=== PATIENT | male | born 1980 | race American Indian/Alaskan Native ===

== ENCOUNTER 2019-07-05 14:50 | Emergency (ER) | payer OTHER ==
[2019-07-05 14:58] VITALS: BP 192/119
--- NOTE | 2019-07-05 15:04 | Emergency Department Report ---
Blank Doc - Documentation Documentation: 38-year-old male that presents with SOB and cough. This initial assessment/diagnostic orders/clinical plan/treatment(s) is/are subject to change based on patient's health status, clinical progression and re- assessment by fellow clinical providers in the ED. Further treatment and workup at subsequent clinical providers discretion. Patient/guardians urged not to elope from the ED as their condition may be serious if not clinically assessed and managed. Initial orders include: 1- Patient sent to [facility] for further evaluation and treatment 2- CXR
--- NOTE | 2019-07-05 17:07 | Emergency Department Report ---
ED General Adult HPI - General Chief complaint: Dyspnea/Respdistress Stated complaint: COUGH/SOB/ Time Seen by Provider: 07/05/19 15:03 Source: patient Mode of arrival: Ambulatory Limitations: No Limitations - History of Present Illness Initial comments: 38-year-old male presenting with chief complaint of cough. He states he has been coughing for 2-1/2 weeks and although the cough seems to be getting a bit better and his shortness of breath has resolved, he still feels congestion in his throat area and wants antibiotics to knock it out. He denies any fevers. Denies any recent travel or known sick contacts. -: Gradual, week(s) (3) Location: chest Radiation: non-radiation Improves with: none Worsens with: none Associated Symptoms: denies other symptoms, cough. denies: chest pain, headaches, nausea/vomiting - Related Data Previous Rx's Medication Instructions Recorded Last Taken Type Albuterol INH(or & Nicu Only) 2 puff IH QID PRN #8.5 gram 07/05/19 Unknown Rx [ProAir HFA Inhaler] amLODIPine 5 mg PO DAILY #30 tab 07/05/19 Unknown Rx hydroCHLOROthiazide [HCTZ] 25 mg PO QDAY #30 tablet 07/05/19 Unknown Rx predniSONE [Deltasone] 40 mg PO QDAY #10 tab 07/05/19 Unknown Rx Allergies Allergy/AdvReac Type Severity Reaction Status Date / Time No Known Allergies Allergy Unverified 07/05/19 15:05 ED Review of Systems ROS: Stated complaint: COUGH/SOB/ Other details as noted in HPI Comment: All other systems reviewed and negative ENT: as per HPI Respiratory: see HPI ED Past Medical Hx - Past Medical History Previous Medical History?: Yes Hx Hypertension: Yes - Surgical History Past Surgical History?: Yes Additional Surgical History: JAW FX - Social History Smoking Status: Never Smoker Substance Use Type: Alcohol - Medications Home Medications: Home Medications Medication Instructions Recorded Confirmed Last Taken Type Albuterol INH(or & Nicu Only) 2 puff IH QID PRN #8.5 gram 07/05/19 Unknown Rx [ProAir HFA Inhaler] amLODIPine 5 mg PO DAILY #30 tab 07/05/19 Unknown Rx hydroCHLOROthiazide [HCTZ] 25 mg PO QDAY #30 tablet 07/05/19 Unknown Rx predniSONE [Deltasone] 40 mg PO QDAY #10 tab 07/05/19 Unknown Rx ED Physical Exam - General Limitations: No Limitations General appearance: alert, in no apparent distress - Head Head exam: Present: atraumatic, normocephalic - Eye Eye exam: Present: normal appearance, PERRL, EOMI - ENT ENT exam: Present: normal exam, mucous membranes moist - Neck Neck exam: Present: normal inspection. Absent: tenderness - Respiratory Respiratory exam: Present: normal lung sounds bilaterally. Absent: respiratory distress, wheezes - Cardiovascular Cardiovascular Exam: Present: regular rate, normal rhythm. Absent: systolic murmur, diastolic murmur, rubs, gallop - GI/Abdominal GI/Abdominal exam: Present: soft, normal bowel sounds - Rectal Rectal exam: Present: deferred - Extremities Exam Extremities exam: Present: normal inspection - Back Exam Back exam: Present: normal inspection - Neurological Exam Neurological exam: Present: alert, oriented X3 - Psychiatric Psychiatric exam: Present: normal affect, normal mood - Skin Skin exam: Present: warm, dry, intact, normal color. Absent: rash ED Course Vital Signs 07/05/19 14:55 Temperature 97.9 F Pulse Rate 89 Respiratory 18 Rate Blood Pressure 192/119 O2 Sat by Pulse 94 Oximetry ED Medical Decision Making - Medical Decision Making Patient states that he has a cough for a few weeks and although the cough and shortness of breath are improving he still feels congestion in his throat and is requesting a prescription for antibiotics. I have advised him that it sounds like he has bronchitis and this is typically viral and antibiotics would be ineffective in treating this and could give him unwanted side effects. I requested to do a chest x-ray however he declines this on multiple occasions stating that "nothing is wrong with my lungs". His blood pressure is noted to be significantly elevated although he is asymptomatic and per ACEP guidelines, this does not require emergent lowering. He will be placed back on his antihypertensives. I have advised that we can offer steroids to try to help break up his congestion in the because he is a non-smoker and his lungs are clear, pneumonia is felt unlikely although I again advised a chest x-ray to evaluate this. Again advised that antibiotics would not be indicated to treat what is likely a viral infection that seems to be improving on its own. He has been advised to follow-up with PCP. - Differential Diagnosis Bronchitis, pneumonia, hypertension Critical care attestation.: If time is entered above; I have spent that time in minutes in the direct care of this critically ill patient, excluding procedure time. ED Disposition Clinical Impression: Uncontrolled hypertension Acute bronchitis Qualifiers: Bronchitis organism: unspecified organism Qualified Code(s): J20.9 - Acute bronchitis, unspecified Disposition: TO HOME OR SELFCARE Is pt being admited?: No Condition: Good Instructions: Acute Bronchitis (ED), Hypertension (ED) Prescriptions: amLODIPine 5 mg PO DAILY #30 tab predniSONE [Deltasone] 40 mg PO QDAY #10 tab hydroCHLOROthiazide [HCTZ] 25 mg PO QDAY #30 tablet Albuterol INH(or & Nicu Only) [ProAir HFA Inhaler] 2 puff IH QID PRN #8.5 gram PRN Reason: Shortness Of Breath Referrals: PRIMARY CARE, [Primary Care Provider] - 3-5 Days JOSELITO YAÑEZ MD [Staff Physician] - 3-5 Days Time of Disposition: 17:08
== END 2019-07-05 17:30 | disposition home or self-care (01) ==
LOC: ED 14:50
DX: J20.9 Acute bronchitis, unspecified (principal); I10 Essential (primary) hypertension; Z98.890 Other specified postprocedural states; Z79.899 Other long term (current) drug therapy
CPT/HCPCS: 99282

== ENCOUNTER 2020-04-08 17:12 | Inpatient (IN) | payer OTHER ==
--- NOTE | 2020-04-08 20:06 | Event Note ---
ED Screening Note ED Screening Note: pt presents for SOB for 2 weeks no cough, fever, v/d, SOB, leg swelling hx of HTN, has not taken medication in months, was last prescribed 30 days in november 2019, never followed up with PCP no allergies to meds tested positive for COVID 19 in january This initial assessment/diagnostic orders/clinical plan/treatment(s) is/are subject to change based on patients health status, clinical progression and re- assessment by fellow clinical providers in the ED. Further treatment and workup at subsequent clinical providers discretion. Patient/guardian urged not to elope from the ED as their condition may be serious if not clinically assessed and managed. Initial orders include: labs, EKG, CXR
[2020-04-08 20:36] LABS: Basophils # (Auto) 0.1 K/mm3 (0.0-0.1); Eosinophils # (Auto) 0.1 K/mm3 (0.0-0.4); Eosinophils % (Auto) 1.8 % (0.0-4.3); Hematocrit 42.6 % (35.5-45.6); Hemoglobin 14.1 gm/dl (11.8-15.2); Lymphocytes # (Auto) 2.4 K/mm3 (1.2-5.4); Lymphocytes % (Auto) 36.9 % (13.4-35.0); Mean Corpuscular HGB Conc 33 % (32-34); Mean Corpuscular Volume 88 fl (84-94); Monocytes # (Auto) 0.7 K/mm3 (0.0-0.8); Monocytes % (Auto) 11.3 % (0.0-7.3); Platelet Count 263 K/mm3 (140-440); Red Blood Count 4.87 M/mm3 (3.65-5.03); Red Cell Distribution Width 14.2 % (13.2-15.2)
--- NOTE | 2020-04-08 20:45 | XRay Report ---
CHEST 2 VIEWS INDICATION / CLINICAL INFORMATION: SOB, HTN urgency. COMPARISON: None available. FINDINGS: SUPPORT DEVICES: None. HEART / MEDIASTINUM: Cardiomegaly. LUNGS / PLEURA: No significant pulmonary or pleural abnormality. No pneumothorax. ADDITIONAL FINDINGS: No significant additional findings. IMPRESSION: 1. Cardiomegaly without acute pulmonary abnormality. Signer Name: Sean Sellers MD Signed: 04/08/2020 8:41 PM Workstation Name: [id number]
[2020-04-08 20:56] LABS: Alanine Aminotransferase 60 units/L (7-56); Albumin 3.8 g/dL (3.9-5); BUN/Creatinine Ratio 12; Blood Urea Nitrogen 13 mg/dL (9-20); Calcium 9.2 mg/dL (8.4-10.2); Hemolysis Index 51
[2020-04-08] MEDS ORDERED: FUROSEMIDE 40 MG/4 ML INJ IV ONE (22:41)
--- NOTE | 2020-04-08 23:27 | Emergency Department Report ---
ED Shortness of Breath HPI - General Chief Complaint: Dyspnea/Respdistress Stated Complaint: HEAVY BREATHING/COVID Time Seen by Provider: 04/08/20 20:01 Source: patient Mode of arrival: Ambulatory Limitations: No Limitations - History of Present Illness Initial Comments: This is a 39-year-old male with past medical history of hypertension but is noncompliant nontoxic, well nourished in appearance, no acute signs of distress presents to the ED with c/o of chest tightness and SOB with bilateral leg swellings. Patient stated has gained about 20 IBS in a few weeks. Patient denies any radiation of pain. Patient denies any upper respiratory symptoms. Patient denies any hemoptysis, fever, chills, nausea, vomiting, headache, stiff neck, numbness, tingling, abdominal pain. Patient denies pleuritic chest pain. Patient denies any recent travels or long car rides. Patient denies any recent surgeries or any sick contacts. Patient denies any drug allergies. Patient denies following up with primary care doctor or [employer]. MD Complaint: shortness of breath, chest pain -: days(s) Pain Scale: 3 Quality: other (thightness) Consistency: constant Improves With: nothing Worsens With: nothing Context: recent URI Associated Symptoms: chest pain Treatments Prior to Arrival: none - Related Data Previous Rx's Medication Instructions Recorded Last Taken Type Albuterol Mdi (or & Nicu Only) 2 puff IH QID PRN #8.5 gram 07/05/19 Unknown Rx [ProAir HFA Inhaler] predniSONE [Deltasone] 40 mg PO QDAY #10 tab 07/05/19 Unknown Rx amLODIPine 5 mg PO DAILY #30 tab 11/21/19 Unknown Rx hydroCHLOROthiazide [HCTZ] 25 mg PO QDAY #30 tablet 11/21/19 Unknown Rx Allergies Allergy/AdvReac Type Severity Reaction Status Date / Time No Known Allergies Allergy Unverified 07/05/19 15:05 ED Review of Systems ROS: Stated complaint: HEAVY BREATHING/COVID Other details as noted in HPI Comment: All other systems reviewed and negative Constitutional: denies: chills, fever Eyes: denies: eye pain, eye discharge, vision change ENT: denies: ear pain, throat pain Respiratory: shortness of breath. denies: cough, wheezing Cardiovascular: chest pain, edema. denies: palpitations Endocrine: no symptoms reported Gastrointestinal: denies: abdominal pain, nausea, diarrhea Genitourinary: denies: urgency, dysuria Musculoskeletal: denies: back pain, joint swelling, arthralgia Skin: denies: rash, lesions Neurological: denies: headache, weakness, paresthesias Psychiatric: denies: anxiety, depression Hematological/Lymphatic: denies: easy bleeding, easy bruising ED Past Medical Hx - Past Medical History Previous Medical History?: Yes Hx Hypertension: Yes - Surgical History Past Surgical History?: Yes Additional Surgical History: JAW FX - Social History Smoking Status: Never Smoker Substance Use Type: Alcohol - Medications Home Medications: Home Medications Medication Instructions Recorded Confirmed Last Taken Type Albuterol Mdi (or & Nicu Only) 2 puff IH QID PRN #8.5 gram 07/05/19 Unknown Rx [ProAir HFA Inhaler] predniSONE [Deltasone] 40 mg PO QDAY #10 tab 07/05/19 Unknown Rx amLODIPine 5 mg PO DAILY #30 tab 11/21/19 Unknown Rx hydroCHLOROthiazide [HCTZ] 25 mg PO QDAY #30 tablet 11/21/19 Unknown Rx ED Physical Exam - General Limitations: No Limitations General appearance: alert, in no apparent distress - Head Head exam: Present: atraumatic, normocephalic - Eye Eye exam: Present: normal appearance - Neck Neck exam: Present: normal inspection, full ROM. Absent: tenderness, meningismus, lymphadenopathy - Respiratory Respiratory exam: Present: normal lung sounds bilaterally. Absent: respiratory distress, wheezes, rales, rhonchi, stridor, chest wall tenderness, accessory muscle use, decreased breath sounds, prolonged expiratory - Cardiovascular Cardiovascular Exam: Present: regular rate, normal rhythm, tachycardia, normal heart sounds. Absent: irregular rhythm, systolic murmur, diastolic murmur, rubs, gallop - GI/Abdominal GI/Abdominal exam: Present: soft, distended, normal bowel sounds. Absent: tenderness, guarding, rebound, rigid, diminished bowel sounds - Rectal Rectal exam: Present: deferred - Extremities Exam Extremities exam: Present: normal inspection, full ROM, normal capillary refill, other (bilateral 2+ pedding edema). Absent: tenderness, joint swelling, calf tenderness - Back Exam Back exam: Present: normal inspection, full ROM. Absent: tenderness, CVA tenderness (R), CVA tenderness (L), muscle spasm, paraspinal tenderness, vertebral tenderness, rash noted - Neurological Exam Neurological exam: Present: alert, oriented X3, normal gait - Psychiatric Psychiatric exam: Present: normal affect, normal mood - Skin Skin exam: Present: warm, dry, intact, normal color. Absent: rash ED Course Vital Signs 04/08/20 04/08/20 04/08/20 17:42 22:14 22:24 Temperature 98.3 F Pulse Rate 102 H 98 H 93 H Respiratory 20 16 Rate Blood Pressure 231/151 184/132 187/133 O2 Sat by Pulse 96 96 94 Oximetry - Reevaluation(s) Reevaluation #1: 04/08/20 23:22 Patient is speaking in full sentences with no acute signs of distress. - Consultations Consultation #1: 04/08/20 23:22 Patient has been consulted with Dr. Celis about patient history, physical exam, and labs/imaging results and accepts patient to services. Consultation #2: 04/08/20 23:31 Patient has been consulted with Dr. Moeller about patient history, physical exam, and labs/imaging results and agrees to the ED plan of care and admission. ED Medical Decision Making - Lab Data Result diagrams: 04/08/20 20:13 04/08/20 20:11 Lab Results 04/08/20 04/08/20 Range/Units 20:11 20:13 WBC 6.5 (4.5-11.0) K/mm3 RBC 4.87 (3.65-5.03) M/mm3 Hgb 14.1 (11.8-15.2) gm/dl Hct 42.6 (35.5-45.6) % MCV 88 (84-94) fl MCH 29 (28-32) pg MCHC 33 (32-34) % RDW 14.2 (13.2-15.2) % Plt Count 263 (140-440) K/mm3 Lymph % (Auto) 36.9 H (13.4-35.0) % [place] % (Auto) 11.3 H (0.0-7.3) % Eos % (Auto) 1.8 (0.0-4.3) % Baso % (Auto) 1.0 (0.0-1.8) % Lymph # (Auto) 2.4 (1.2-5.4) K/mm3 [place] # (Auto) 0.7 (0.0-0.8) K/mm3 Eos # (Auto) 0.1 (0.0-0.4) K/mm3 Baso # (Auto) 0.1 (0.0-0.1) K/mm3 Seg Neutrophils % 49.0 (40.0-70.0) % Seg Neutrophils # 3.2 (1.8-7.7) K/mm3 Sodium 138 (137-145) mmol/L Potassium 3.9 (3.6-5.0) mmol/L Chloride 97.5 L (98-107) mmol/L Carbon Dioxide 31 H (22-30) mmol/L Anion Gap 13 mmol/L BUN 13 (9-20) mg/dL Creatinine 1.1 (0.8-1.3) mg/dL Estimated GFR > 60 ml/min BUN/Creatinine Ratio 12 % Glucose 99 (75-100) mg/dL Calcium 9.2 (8.4-10.2) mg/dL Total Bilirubin 0.50 (0.1-1.2) mg/dL AST 42 H (5-40) units/L ALT 60 H (7-56) units/L Alkaline Phosphatase 104 (35-129) units/L Troponin T < 0.010 (0.00-0.029) ng/mL NT-Pro-B Natriuret Pep 2844 H (0-450) pg/mL Total Protein 7.1 (6.3-8.2) g/dL Albumin 3.8 L (3.9-5) g/dL Albumin/Globulin Ratio 1.2 % - EKG Data 04/08/20 23:27 Sinus tachycardia at 108. Left arterial enlargement. 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 Left ventricular hypertrophy. Anterior Q waves, possibly due to LVH - Radiology Data Referring Physician: DIANNA MCDERMOTT Patient Name: CAROLINE MEDEROS Date of : 1980 Sex: Male Report Date: 2020-04-08 Report Status: Finalized [facility] [address] [place] [address] XRay Report Signed Patient: CAROLINE MEDEROS MR#: [id number] : 1980 Acct:[id number] Age/Sex: 39 / M ADM Date: 04/08/20 Loc: ED Attending Dr: Ordering Physician: KRYSTAL ARIAS Date of Service: 04/08/20 Procedure(s): XR chest routine 2V Accession Number(s): [id number] cc: KRYSTAL ARIAS Fluoro Time In Minutes: CHEST 2 VIEWS INDICATION / CLINICAL INFORMATION: SOB, HTN urgency. COMPARISON: None available. FINDINGS: SUPPORT DEVICES: None. HEART / MEDIASTINUM: Cardiomegaly. LUNGS / PLEURA: No significant pulmonary or pleural abnormality. No pneumothorax. ADDITIONAL FINDINGS: No significant additional findings. IMPRESSION: 1. Cardiomegaly without acute pulmonary abnormality. Signer Name: Tiago Alvarado MD Signed: 04/08/2020 8:41 PM Workstation Name: [id number] Transcribed By: SS Dictated By: TIAGO ALVARADO Electronically Authenticated By: TIAGO ALVARADO Signed Date/Time: 04/08/202040 DD/ 39 TD/TT: - Medical Decision Making 39-year-old male that presents with possible acute CHF with chest pain and shortness of breath. Patient is stable and was examined by me. Patient admitted with hospitalist for further evaluation and treatment. At time of admission, the patient does not seem toxic or ill in appearance. No acute signs of distress noted. Patient agrees to admission treatment plan of care. No further questions noted by the patient. Critical care attestation.: If time is entered above; I have spent that time in minutes in the direct care of this critically ill patient, excluding procedure time. 

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
[2020-04-08] MEDS ORDERED: cloNIDine 0.2 MG TAB PO PRN (23:48)
[2020-04-08] MEDS ORDERED: ALBUTEROL 2.5 MG/3 ML NEBU IH PRN (23:48)
[2020-04-08] MEDS ORDERED: traMADol 50 MG TAB PO PRN (23:48)
[2020-04-08] MEDS ORDERED: ONDANSETRON 4 MG/2 ML INJ IV PRN (23:48)
[2020-04-08] MEDS ORDERED: ACETAMINOPHEN 325 MG TAB PO PRN ×2 (23:48)
[2020-04-08] MEDS ORDERED: METOCLOPRAMIDE 10 MG/2 ML INJ IV PRN (23:48)
[2020-04-08] MEDS ORDERED: IPRATROPIUM/ALBUTEROL SULFATE 3 ML AMPUL.NEB IH PRN (23:48)
[2020-04-08] MEDS ORDERED: ALUM-MAG HYDROXIDE-SIMETHICONE 200-200-20MG/5ML ORAL LIQD 30 ML PO PRN (23:48)
[2020-04-08] MEDS ORDERED: ZOLPIDEM 5 MG TAB PO PRN (23:48)
[2020-04-08] MEDS ORDERED: SENNOSIDES 8.6 MG TAB PO PRN (23:48)
[2020-04-08] MEDS ORDERED: NITROGLYCERIN 0.4 MG TAB SUBL SL PRN (23:48)
[2020-04-08] MEDS ORDERED: hydrALAZINE 20 MG/1 ML INJ IV PRN (23:48)
[2020-04-08] MEDS ORDERED: MAGNESIUM HYDROXIDE (MOM) ORAL LIQD UDC PO PRN (23:48)
[2020-04-09] MEDS ORDERED: amLODIPine 5 MG TAB PO ONE
[2020-04-09 00:38] LABS: INR 1.22 (0.87-1.13)
[2020-04-09 00:39] LABS: Partial Thromboplastin Time 28.8 Sec. (24.2-36.6)
[2020-04-09] MEDS ORDERED: FUROSEMIDE 40 MG/4 ML INJ IV SCH (06:00)
[2020-04-09] MEDS ORDERED: ALBUTEROL 8.5 GM MDI INHALATION IH PRN (08:15)
[2020-04-09] MEDS ORDERED: ASPIRIN 81 MG TAB CHEW PO SCH (10:00)
[2020-04-09] MEDS ORDERED: ENOXAPARIN 60 MG/0.6 ML INJ SUB-Q SCH (10:00)
[2020-04-09] MEDS ORDERED: amLODIPine 5 MG TAB PO SCH (10:00)
[2020-04-09] MEDS ORDERED: FAMOTIDINE 20 MG/2 ML INJ IV SCH (10:00)
[2020-04-09] MEDS ORDERED: FAMOTIDINE 20 MG TAB PO SCH (11:00)
--- NOTE | 2020-04-09 11:09 | Discharge Summary ---
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 On arrival to the ED his BP was 183/133 and he received 60mg IV lasix, 10 mg Amlodipine by mouth, and Labetalol 100 mg by mouth. He underwent an echocardiogram and we are awaiting a read by a cardi ologist. Patient said he knows he has high blood pressure and stopped taking his medication because he ran out and he is not following up with any primary care doctor or day care attendant. ED work up shows sodium 138, potassium 3.9, Cr 1.1, BNP 2844, WBC 6.5, Hemoglobin 14 and his chest x-ray showed cardiomegaly. Today he was seen by Dr. Noble and he has cleared the patient for discharge with lopressor, hydrochlorothiazide and losartan. The patient will need to follow up with Dr. Noble in his office within 2 weeks fo discharge. Patient states he does not have a primary care provider and he has been given local resources for primary care. Patient will need to follow up with a primary care provider within 1-2 weeks of discharge. Patient has been educated on his instructions and he verbalizes understanding. Assessment and Plan - Patient Problems (1) Hypertensive emergency Current Visit: Yes Status: Acute Plan to address problem: - Presented to ED with BP 183/133 - s/p amlodipine 10mg, lasix 60mg IVP, and labetalol 100mg PO - Monitor blood pressure per PCP instructions - Follow up with cardiology in office within 2 weeks of discharge (2) Acute CHF (congestive heart failure) Current Visit: Yes Status: Acute Qualifiers: Heart failure type: unspecified Qualified Code(s): I50.9 - Heart failure, unspecified Plan to address problem: - Discharge home with losartan, labetalol and hydrochlorothiazide - 04/08 Chest [id number] - Follow up with cardiology in office within 2 weeks of discharge (3) SOB (shortness of breath) Current Visit: Yes Status: Acute Plan to address problem: - Secondary to fluid overload - s/p Lasix IV (4) Chest pain Current Visit: Yes Status: Acute Qualifiers: Chest pain type: unspecified Qualified Code(s): R07.9 - Chest pain, unspecified Plan to address problem: - Likely 2/2 to uncontrolled blood pressure - Followup with cardiology with 2 weeks (5) Medically noncompliant Current Visit: Yes Status: Acute Plan to address problem: - Discussed significant of treatment compliance and follow up appointment - Given community resources (6) Morbid (severe) obesity due to excess calories Current Visit: Yes Status: Chronic Plan to address problem: - Discussed lifestyle modification - Healthy diet, avoiding alcohol, fried foods, and animal fat. - Discussed significant of regular exercise and weight management (7) Alcohol abuse Current Visit: Yes Status: Chronic Plan to address problem: Discussed alcohol use cessation patient voiced understanding Disposition: DC-01 TO HOME OR SELFCARE Time spent for discharge: 35 Core Measure Documentation - Palliative Care Palliative Care/ Comfort Measures: Not Applicable - Core Measures Any of the following diagnoses?: none Exam - Constitutional Vitals: Temp Pulse Resp BP Pulse Ox 98.3 F 90 18 160/120 98 04/09/20 01:09 04/09/20 06:54 04/09/20 08:03 04/09/20 06:54 04/09/20 08:03 General appearance: Present: no acute distress - EENT Eyes: Present: PERRL, EOM intact ENT: hearing intact, clear oral mucosa - Neck Neck: Present: normal ROM - Respiratory Respiratory effort: normal Respiratory: bilateral: CTA - Cardiovascular Rhythm: regular Heart Sounds: Present: S1 & S2. Absent: systolic murmur, diastolic murmur - Extremities Extremities: no ischemia, pulses intact, pulses symmetrical, normal temperature, normal color, Full ROM Extremity abnormal: edema - Peripheral Assessment Bilateral Ankle Edema Type: Pitting Edema Degree: 1+ Capillary Refill: < 3 seconds Skin Temperature: Warm Peripheral Pulses: within normal limits - Abdominal General gastrointestinal: Present: soft, non-tender, non-distended, normal bowel sounds - Integumentary Integumentary: Present: warm, dry - Musculoskeletal Musculoskeletal: strength equal bilaterally - Psychiatric Psychiatric: appropriate mood/affect, cooperative - Neurologic Neurologic: CNII-XII intact, no focal deficits, moves all extremities Plan Activity: no restrictions Diet: low fat, low cholesterol, low salt Special Instructions: record daily BP diary Additional Instructions: Contact your PCP or present to the nearest ED if you experience worsening symptoms. You are strongly encouraged to establish a primary care doctor. Follow up with Dr. Noble in his office in 2 weeks of discharge. Follow up with: [facility] [Outside] - 7 Days [facility] [Outside] - 7 Days PRIMARY CAREMD [Primary Care Provider] - 3-5 Days RANDY NOBLE MD [Staff Physician] - 7 Days TALON XIAO MD [Staff Physician] - 7 Days SANTY RYAN MD [Staff Physician] - 7 Days Prescriptions: Losartan [Cozaar] 100 mg PO QDAY #30 tablet hydroCHLOROthiazide [HCTZ] 25 mg PO QDAY #30 tablet Metoprolol [Lopressor TAB] 50 mg PO BID #30 tablet traMADoL [Ultram 50 MG tab] 50 mg PO Q6HR PRN #14 tablet PRN Reason: Pain, Moderate (4-6)
[2020-04-09 11:43] VITALS: BP 154/115
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
== END 2020-04-09 12:42 | disposition home or self-care (01) | DRG 291 ==
LOC: ED 17:12 → 4A 23:30
PROVIDERS: ADMIT Internal Medicine Geriatric Medicine; ATTEND Internal Medicine
DX: I11.0 Hypertensive heart disease with heart failure (principal); I50.21 Acute systolic (congestive) heart failure; I16.1 Hypertensive emergency; I45.3 Trifascicular block; Z68.42 Body mass index [BMI] 45.0-49.9, adult; Z91.19 Patient's noncompliance with other medical treatment and regimen; E66.01 Morbid (severe) obesity due to excess calories; Z82.49 Family history of ischemic heart disease and other diseases of the circulatory system; F10.10 Alcohol abuse, uncomplicated; Y90.9 Presence of alcohol in blood, level not specified; E87.70 Fluid overload, unspecified
CPT/HCPCS: 36415; 71046; 80053; 83880; 84484; 85025; 85610; 85730; 93005; 93306; G0378; J1940